=== PATIENT | male | born 1960 | race Caucasian/White ===

== ENCOUNTER → 2017-06-21 | Outpatient (CLI) | payer BC ==
[2017-06-21 10:02] LABS: BLOOD UREA NITROGEN 19 mg/dl (7-18); BUN/CREATININE RATIO 16.8 (10-20); CREATININE 1.13 mg/dl (0.60-1.40)
[2017-06-21 10:06] LABS: PROSTATE SPECIFIC ANTIGEN 0.774 ng/ml (0.000-4.000)
== END | disposition home or self-care (01) ==
LOC: C.LAB 07:18
PROVIDERS: ATTEND Urology
DX: R35.0 Frequency of micturition (principal)